=== PATIENT | female | born 1985 | race Caucasian/White ===

== ENCOUNTER 2019-02-13 09:06 | Inpatient (IN) | payer BC ==
[2019-02-13 10:48] LABS: Basophils % (A) 0 %; Eosinophils # (A) 0.1 k/uL (0-0.7); Eosinophils % (A) 1 %; HCT 38.9 % (34.0-46.0); HGB 12.7 gm/dL (11.4-16.0); Lymphocytes # (A) 2.1 k/uL (1.0-4.8); Lymphocytes % (A) 15 %; MCH 27.8 pg (25.0-35.0); MCHC 32.7 g/dL (31.0-37.0); MCV 85.2 fL (80.0-100.0); Mean Platelet Volume 9.6; Monocytes # (A) 0.6 k/uL (0-1.0); Monocytes % (A) 4 %; Neutrophils # (A) 11.2 k/uL (1.3-7.7); Neutrophils % (A) 79 %; Platelet Count 213 k/uL (150-450); RBC 4.56 m/uL (3.80-5.40); RDW 15.8 % (11.5-15.5); WBC 14.3 k/uL (3.8-10.6)
[2019-02-13 11:03] LABS: ALT 15 U/L (9-52); AST 19 U/L (14-36); African American GFR (CKD) >90 (>60 ml/min/1.73 sqM); Blood Urea Nitrogen 11 mg/dL (7-17); LDH 387 U/L (313-618); Uric Acid 7.1 mg/dL (3.7-7.4)
[2019-02-13 11:36] LABS: Appearance,Urine Clear (Clear); Bilirubin,Urine Negative (Negative); Blood,Urine Negative (Negative); Color,Urine Yellow; Glucose,Urine (UA) Negative (Negative); Ketones,Urine Negative (Negative); Leukocyte Esterase,Urine Large (Negative); Mucus,Urine Rare /hpf; Nitrite,Urine Negative (Negative); Protein,Urine Negative (Negative); RBC,Urine 1 /hpf (0-5); Squamous Epithelial Cell,Urine 3 /hpf (0-4); Urobilinogen,Urine <2.0 mg/dL (<2.0); WBC,Urine 1 /hpf (0-5)
[2019-02-13 13:06] VITALS: BMI 36.4
--- NOTE | 2019-02-13 19:40 | P.HPOB ---
History of Present Illness H&P Date: 02/13/19 Chief Complaint: Contractions, rule out labor This patient is a pleasant 34-year-old 1 para 0 female estimated date of confinement 02/11/2019 estimated gestational age 40-2/7 weeks who's had care with Dr. Burgess. Patient presented to labor and delivery this morning with complaints of contractions and concern that she was in labor. Patient was watched and had serial exams and there was no evidence of labor however her initial blood pressure showed an elevated diastolic of 95. Subsequent blood pressures were all normal however due to this elevation I recommended preeclampsia labs which again were normal with the exception of a high uric acid of 7.1. Patient denies any headaches or any signs or symptoms of preeclampsia. Protein to creatinine ratio was normal. heart tones are category 1. care is per Dr. Burgess. It appears to be uncomplicated. This is the result of a sperm donor. I discussed the findings with the p atient although I do not think she has preeclampsia due to her being postdates and elevated uric acid we have land to proceed with induction of labor tomorrow. Review of Systems Genitourinary: Reports Menstruation: Reports amenorrhea Past Medical History Past Medical History: No Reported History History of Any Multi-Drug Resistant Organisms: None Reported Additional Past Surgical History / Comment(s): [place] teeth removed in 2006 Past Anesthesia/Blood Transfusion Reactions: No Reported Reaction Past Psychological History: No Psychological Hx Reported Smoking Status: Never smoker Past Alcohol Use History: None Reported Past Drug Use History: None Reported - Past Family History Mother Family Medical History: Hypertension Medications and Allergies Home Medications Medication Instructions Recorded Confirmed Type Pnv,Calcium 72/Iron/Folic Acid 1 tab PO DAILY 02/13/19 02/13/19 History [ Plus Tablet] Allergies Allergy/AdvReac Type Severity Reaction Status Date / Time Sulfa (Sulfonamide Allergy Rash/Hives Verified 02/13/19 09:14 Antibiotics) Exam Vital Signs Temp Pulse Resp BP Pulse Ox 02/13/19 16:16 98.3 F 85 20 123/79 02/13/19 12:58 97.3 F L 78 16 126/85 97 02/13/19 10:16 97.3 F L 110 H 14 135/95 Intake and Output 02/13/19 02/13/19 02/13/19 06:59 14:59 22:59 Other: # Voids 1 Weight 105.551 kg - OBG Physical Exam Abdomen: bowel sounds normal, no diffuse tenderness, no bruit present, no guarding noted, no hepatomegaly, no splenomegaly, no mass Vulva: both: normal Vagina: normal moisture, no discharge Cervix: no lesion (Cervix is 1 cm per the RN.), no discharge Uterus: enlarged (Fundal height appears appropriate for gestational age) Results blood work shows she is A positive, rubella immune, RPR nonreactive, hepatitis B negative, HIV is nonreactive, anatomy ultrasounds have been normal, Glucola was normal. Group B strep was positive. Result Diagrams: 02/13/19 10:32 02/13/19 10:32 Abnormal Lab Results - Last 24 Hours (Table) 02/13/19 02/13/19 02/13/19 Range/Units 09:58 09:58 10:32 WBC 14.3 H (3.8-10.6) k/uL RDW 15.8 H (11.5-15.5) % Neutrophils # 11.2 H (1.3-7.7) k/uL Ur Leukocyte Esterase Large H (Negative) Urine Mucus Rare H (None) /hpf U Random Total Protein 13 H (<12) mg/dL Assessment and Plan Assessment: This is a pleasant 34-year-old 1 para 0 female 40-2/7 weeks gestation presenting to labor and delivery with complaints of contractions is found not to be in labor however had 1 blood pressure with mild diastolic elevation and a elevated uric acid. Although I do not believe this patient has preeclampsia or gestational hypertension, I did discuss with her the option of being induced tomorrow due to postdates and she wishes to proceed. Plan will be induction of labor per Dr. Burgess tomorrow and observation overnight. (1) Postmaturity , 40-42 weeks gestation Current Visit: Yes Status: Acute Code(s): O48.0 - POST-TERM SNOMED Code(s): 19931989627732 (2) Group B streptococcal carriage complicating Current Visit: Yes Status: Acute Code(s): O99.820 - STREPTOCOCCUS B CARRIER STATE COMPLICATING SNOMED Code(s): 777099843371594
[2019-02-14] MEDS ORDERED: OXYTOCIN 30 UNITS/500 ML NS 30 UNIT in SALINE 1 500ML.BAG IV SCH (01:51)
[2019-02-14] MEDS ORDERED: TERBUTALINE 1 MG/ML VIAL SQ PRN (01:51)
[2019-02-14] MEDS ORDERED: AMPICILLIN 2,000 MG in SODIUM CHLORIDE 0.9% 100 ML IVPB STA (01:51)
[2019-02-14] MEDS ORDERED: LIDOCAINE 0.5% (PF) 5 MG/ML (50 ML SDV) SQ PRN (01:51)
[2019-02-14] MEDS ORDERED: OXYTOCIN 10 UNIT/ML 1 ML VIAL IM PRN (01:51)
[2019-02-14] MEDS ORDERED: CARBOPROST TROMETHAMINE 250 MCG/ML 1 ML AMP IM PRN (01:51)
[2019-02-14] MEDS ORDERED: METHYLERGONOVINE 0.2 MG/ML 1 ML AMP IM PRN (01:51)
[2019-02-14] MEDS: LACTATED RINGERS 1,000 ML IV SCH ×3 (05:18→15:46)
[2019-02-14] MEDS ORDERED: BUTORPHANOL 1 MG/ML 1 ML VIAL IV PRN (07:39)
[2019-02-14] MEDS ORDERED: ROPIVACAINE 5MG/ML 20ML VIAL ONE (09:24)
[2019-02-14] MEDS ORDERED: fentaNYL (PF) 50 MCG/ML 5 ML AMP ONE (09:24)
[2019-02-14] MEDS ORDERED: SODIUM CHLORIDE 0.9% 100 ML BAG ONE (09:24)
[2019-02-14] MEDS: AMPICILLIN 1,000 MG in SODIUM CHLORIDE 0.9% 50 ML IVPB SCH ×3 (09:57→19:51)
[2019-02-14] MEDS ORDERED: HYDROCORTISONE 2.5% RECTAL CREAM 30 GM TUBE RECTAL PRN (18:12)
[2019-02-14] MEDS ORDERED: ACETAMINOPHEN TAB 325 MG TAB PO PRN (18:12)
[2019-02-14] MEDS ORDERED: diphenhydrAMINE 25 MG CAP PO PRN (18:12)
[2019-02-14] MEDS ORDERED: SIMETHICONE 80 MG CHEWABLE PO PRN (18:12)
[2019-02-14] MEDS ORDERED: diphenhydrAMINE 50 MG/ML 1 ML VIAL IVP PRN ×2 (18:12)
[2019-02-14] MEDS ORDERED: ZOLPIDEM 5 MG TAB PO PRN (18:12)
[2019-02-14] MEDS ORDERED: diphenhydrAMINE 50 MG CAP PO PRN (18:12)
[2019-02-14] MEDS ORDERED: BENZOCAINE/MENTHOL SPRAY 1 GM/SPRAY AEROSOL TOPICAL PRN (18:12)
[2019-02-14] MEDS ORDERED: LANOLIN CREAM 5 GM TUBE TOPICAL PRN (18:12)
[2019-02-14] MEDS ORDERED: WITCH HAZEL 1 EACH MED..PAD TOPICAL PRN (18:12)
[2019-02-14] MEDS ORDERED: OXYTOCIN 20 UNITS/1000 ML NS 1,000 ML IV SCH (18:15)
[2019-02-14] MEDS ORDERED: SENNOSIDES-DOCUSATE SODIUM 1 EACH TAB PO SCH (20:00)
[2019-02-14] MEDS: IBUPROFEN 600 MG TAB PO PRN (21:19)
[2019-02-15] MEDS: IBUPROFEN 600 MG TAB PO PRN ×2 (06:12→15:48)
--- NOTE | 2019-02-15 07:21 | P.PROBDLV ---
Vaginal Delivery Note - . Vaginal Delivery Note: 34-year-old presents at 40 weeks and 3 days. She was complaining of contractions but then was kept for 1 elevated blood pressure and an increased uric acid. Her other labs were completely normal. She has no headache, vision changes, shortness of breath, calf pain, right upper quadrant pain. She was kept for induction of labor due to being postdates and the elevated blood pressure. Her cervix was 3 cm dilated, 80% effaced, -2 station when amniotomy was performed at 7:20 AM and clear fluid noted. Pitocin had also been started. When she was uncomfortable she did get an epidural. Her cervix was completely dilated at 1739. She pushed, delivered a viable male infant over intact perineum under epidural anesthesia at 1758. Head delivered OA, anterior shoulder delivered gentle downward guidance for by posterior shoulder and rest of body. Nose and mouth bulb suctioned, cord clamped and cut, infant placed on mother's abdomen. Apgars 9, 9, weight 7 lbs. 7 oz. Placenta delivered spontaneously, intact with three-vessel cord at 1801. Vagina, cervix, perineum inspected. First-degree left laceration was repaired with 3-0 Vicryl. Estimated blood loss 200 mL. Mother and baby in stable condition.
--- NOTE | 2019-02-15 07:27 | P.DS ---
Providers Date of admission: 02/13/19 12:41 Expected date of discharge: 02/15/19 Attending physician: Laura Burgess Primary care physician: Stated None - Discharge Diagnosis(es) (1) Normal vaginal delivery Current Visit: Yes Status: Acute Hospital Course: Patient presented for postdates with one increased blood pressure for induction of labor. She has had no further blood pressures that have been increased. She underwent a normal vaginal delivery. Her course was uncomplicated. She is tolerating regular diet, and bleeding voiding without difficulty. She denies nausea, vomiting, chest pain, shortness of breath or calf pain. She'll be discharged home day #1 in stable condition to follow-up with me in 6 weeks. Plan - Discharge Summary New Discharge Prescriptions: New Ibuprofen [Motrin] 600 mg PO Q6HR PRN #30 tab PRN Reason: Mild Pain Or Fever >= 100.5 No Action Pnv,Calcium 72/Iron/Folic Acid [ Plus Tablet] 1 tab PO DAILY Discharge Medication List Pnv,Calcium 72/Iron/Folic Acid [ Plus Tablet] 1 tab PO DAILY 02/13/19 [History] Ibuprofen [Motrin] 600 mg PO Q6HR PRN #30 tab 02/15/19 [Rx] Follow up Appointment(s)/Referral(s): Laura Burgess DO [Doctor of Osteopathic Medicine] - 6 Weeks Discharge Disposition: HOME SELF-CARE
[2019-02-15 07:32] LABS: Basophils # (A) 0.1 k/uL (0-0.2); Basophils % (A) 0 %; Eosinophils # (A) 0.2 k/uL (0-0.7); Eosinophils % (A) 1 %; HCT 32.7 % (34.0-46.0); HGB 11.1 gm/dL (11.4-16.0); Lymphocytes # (A) 2.2 k/uL (1.0-4.8); Lymphocytes % (A) 12 %; MCH 29.3 pg (25.0-35.0); MCHC 33.8 g/dL (31.0-37.0); MCV 86.6 fL (80.0-100.0); Mean Platelet Volume 9.7; Monocytes % (A) 6 %; Neutrophils # (A) 14.3 k/uL (1.3-7.7); Neutrophils % (A) 80 %; Platelet Count 179 k/uL (150-450); RBC 3.78 m/uL (3.80-5.40); RDW 15.5 % (11.5-15.5)
[2019-02-15 09:00] VITALS: RESP 16; TEMP 98.2
[2019-02-15 16:13] VITALS: BP 121/79; PULSE 74
== END 2019-02-15 19:02 | disposition home or self-care (01) | DRG 807 ==
LOC: FBPOP 09:06 → 4FBP 12:41
PROVIDERS: ADMIT Obstetrics & Gynecology; ATTEND Obstetrics & Gynecology
PROC: 10907ZC Drainage of Amniotic Fluid, Therapeutic from Products of Conception, Via Natural or Artificial Opening (ICD-10-PCS; principal; 2019-02-15)
PROC: 10E0XZZ Delivery of Products of Conception, External Approach (ICD-10-PCS; principal; 2019-02-15)
PROC: 00HU33Z Insertion of Infusion Device into Spinal Canal, Percutaneous Approach (ICD-10-PCS; principal; 2019-02-15)
PROC: 3E0R3BZ Introduction of Anesthetic Agent into Spinal Canal, Percutaneous Approach (ICD-10-PCS; principal; 2019-02-15)
PROC: 0HQ9XZZ Repair Perineum Skin, External Approach (ICD-10-PCS; principal; 2019-02-15)
DX: O99.824 Streptococcus B carrier state complicating childbirth (principal); Z37.0 Single live birth; O48.0 Post-term pregnancy; O70.0 First degree perineal laceration during delivery; Z3A.40 40 weeks gestation of pregnancy; Z82.49 Family history of ischemic heart disease and other diseases of the circulatory system; Z88.2 Allergy status to sulfonamides
CPT/HCPCS: 59025; 81001; 82565; 82570; 83615; 84156; 84450; 84460; 84520; 84550; 85025; 86850; 86900; 86901; 99215

== ENCOUNTER → 2023-06-17 | Outpatient (CLI) | payer OTHER ==
--- NOTE | 2023-06-20 19:45 | MM ---
Reason for Exam: Screening (asymptomatic). Baseline mammogram. Patient History: Menarche at age 14. First Full-Term at age 34. Late child-bearing (after 30). Patient has history of breast feeding. Patient used Hormonal Contraceptives for 1 year. Last menstrual period: 05/22/2023 Risk Values: Kasandra 5 year model risk: 0.5%. NCI Lifetime model risk: 13.8%. Prior Study Comparison: Patient's first Mammogram. Tissue Density: There are scattered fibroglandular densities. Findings: Analyzed By CAD. Pattern appears symmetrical. No significant interval change is evident. No suspicious groups of microcalcifications, spiculated or lobular masses, architectural distortion or other secondary signs of malignancy are mammographically apparent. Overall Assessment: Benign, BI-RAD 2 Management: Screening Mammogram of both breasts in 1 year. A negative mammogram report should not preclude additional follow up of suspicious palpable abnormalities. Patient should continue monthly self breast exam. A clinical breast exam by your physician is recommended on an annual basis and results should be correlated with mammographic findings. Electronically signed and approved by: Lalo Nnio D.O. Radiologis
== END | disposition home or self-care (01) ==
LOC: RADMAMWWP 15:56
PROVIDERS: ATTEND Obstetrics & Gynecology
DX: Z12.31 Encounter for screening mammogram for malignant neoplasm of breast (principal)
CPT/HCPCS: 77063; 77067